=== PATIENT | female | born 1960 | race Caucasian/White ===

== ENCOUNTER 2016-05-08 18:15 | Emergency (ER) | payer OTHER ==
--- NOTE | 2016-05-08 19:21 | ED ORDER SUMMARY ---
..... Patient: LATISHA NORRIS OrderSheet [facility] VisitID: [id number] [address] [place] [address] 55y, F Registration Date/Time: 05/08/2016 ORDER SHEET Weight: 95.2 kg (stated) Allergies: Codeine GENERAL ORDERS: Cervical Spine 2 or 3V Urgent (18:50 05/08/2016 [facility]) (Ack 19:06 RKaruga) (19:21 MWinterer R.N.) Thoracic Spine 2V Urgent (18:50 05/08/2016 [facility]) (Ack 19:06 RKaruga) (19:21 MWinterer R.N.) Lumbar Spine 2 or 3V Urgent (18:50 05/08/2016 [facility]) (Ack 19:06 RKaruga) (19:21 MWinterer R.N.) MEDICATION ORDERS: Dilaudid IM 1 mg (HIGH ALERT MEDICATION, NOW) (18:52 05/08/2016 [facility]) (Ack 19:10 MWinterer R.N.) (19:32 MWinterer R.N.) Phenergan IM 25 mg (HIGH ALERT MEDICATION, NOW) (18:52 05/08/2016 [facility]) (Ack 19:10 MWinterer R.N.) (19:32 MWinterer R.N.) Zofran ODT PO 4 mg (NOW) (19:54 05/08/2016 [facility]) (Ack 19:55 MWinterer R.N.) (20:00 MWinterer R.N.) IV FLUIDS: ORDER SHEET NOTES: [Electronically signed by Patience Simmons R.N. (23:37 05/08/2016)] [Electronically signed by Luis Palma DO (13:19 05/09/2016)] [Electronically locked/signed by Patience Simmons R.N. (23:37 05/08/2016)]
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
--- NOTE | 2016-05-08 19:21 | ED ORDER SUMMARY ---
..... Patient: LATISHA NORRIS OrderSheet [facility] VisitID: [id number] [address] [place] [address] 55y, F Registration Date/Time: 05/08/2016 ORDER SHEET Weight: 95.2 kg (stated) Allergies: Codeine GENERAL ORDERS: Cervical Spine 2 or 3V Urgent (18:50 05/08/2016 [facility]) (Ack 19:06 RKaruga) (19:21 MWinterer R.N.) Thoracic Spine 2V Urgent (18:50 05/08/2016 [facility]) (Ack 19:06 RKaruga) (19:21 MWinterer R.N.) Lumbar Spine 2 or 3V Urgent (18:50 05/08/2016 [facility]) (Ack 19:06 RKaruga) (19:21 MWinterer R.N.) MEDICATION ORDERS: Dilaudid IM 1 mg (HIGH ALERT MEDICATION, NOW) (18:52 05/08/2016 [facility]) (Ack 19:10 MWinterer R.N.) (19:32 MWinterer R.N.) Phenergan IM 25 mg (HIGH ALERT MEDICATION, NOW) (18:52 05/08/2016 [facility]) (Ack 19:10 MWinterer R.N.) (19:32 MWinterer R.N.) Zofran ODT PO 4 mg (NOW) (19:54 05/08/2016 [facility]) (Ack 19:55 MWinterer R.N.) (20:00 MWinterer R.N.) IV FLUIDS: ORDER SHEET NOTES: [Electronically signed by Patience Simmons R.N. (23:37 05/08/2016)] [Electronically signed by Luis Palma DO (13:19 05/09/2016)] [Electronically locked/signed by Patience Simmons R.N. (23:37 05/08/2016)]
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
--- NOTE | 2016-05-08 19:44 | DIAGNOSTIC IMAGING REPORT ---
PROCEDURE: XR CERVICAL SPINE 2 OR 3 VIEW INDICATION: NECK TRAUMA/INJURY TECHNIQUE: Four views of the cervical spine were obtained. COMPARISON: None. FINDINGS: The cervical vertebral bodies are normal in height and alignment. Mild anterior and posterior degenerative endplate spurring at C5-6 and C6-7. Mild facet hypertrophy in the upper cervical spine. The disk spaces are minimally decreased at C6-7 but otherwise normally maintained. There is no prevertebral soft-tissue swelling or suspicious calcification. The airway is patent. The soft tissues of the neck appear normal. IMPRESSION: 1. Intact cervical spine. 2. Mild disc, facet, and endplate degeneration
--- NOTE | 2016-05-08 19:46 | DIAGNOSTIC IMAGING REPORT ---
PROCEDURE: XR THORACIC SPINE 2 VIEWS INDICATION: TRAUMA/INJURY TECHNIQUE: Three views of the thoracic spine COMPARISON: 11/20/2015 FINDINGS: 12 thoracic vertebral bodies are normal in height without fracture. Mild degenerative endplate spurring mid and lower thoracic spine. The disc spaces are normally maintained. No significant scoliosis. No AP subluxation. Paraspinal soft tissue stripe is normal. The visible soft tissues and ribs are normal. IMPRESSION: 1. Intact thoracic spine. 2. Minimal degenerative changes, stable.
--- NOTE | 2016-05-08 19:49 | DIAGNOSTIC IMAGING REPORT ---
PROCEDURE: XR LUMBAR SPINE 2 OR 3 VIEWS INDICATION: TRAUMA/INJURY TECHNIQUE: Three views of the lumbar spine COMPARISON: 11/20/2015 FINDINGS: Five lumbar-type vertebral bodies are present. Normal vertebral body height without fracture. Slight left lateral subluxation of L4-5, chronic. Moderately severe L5-S1 disc height loss, chronic. Mild disc height loss L4-5. Right-sided facet hypertrophy L4-S1. The visible osseous pelvis and bowel gas pattern are normal. Spurring of the left sacroiliac joint, chronic. IMPRESSION: 1. Degenerative changes in the lower lumbar spine are chronic. 2. No acute fractures.
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
--- NOTE | 2016-05-09 13:19 | ED MAR SUMMARY ---
..... Medication Administration Record [facility] [address] [place] [address] Patient: LATISHA NORRIS Visit ID: [id number] 55y, F Weight: 95.2 kg Height/Length: 67 in BMI: 32.9 ALLERGIES: Codeine Given 19:32 05/08/2016 Patience Simmons, R.N. Medication Administered: DILAUDID [IM] (HYDROMORPHONE HCL PF), Dose: 1 mg IM. Medication Ordered: Dilaudid IM 1 mg (HIGH ALERT MEDICATION, NOW). Given 19:32 05/08/2016 Patience Simmons RVinhN. Medication Administered: PHENERGAN [IM] (PROMETHAZINE HCL), Dose: 25 mg IM. Medication Ordered: Phenergan IM 25 mg (HIGH ALERT MEDICATION, NOW). Given 20:00 05/08/2016 Patience Simmons, R.N. Medication Administered: ZOFRAN ODT [PO] (ONDANSETRON), Dose: 4 mg PO. Medication Ordered: Zofran ODT PO 4 mg (NOW).
--- NOTE | 2016-05-09 13:19 | ED MED RECONCILIATION SUMMARY ---
Patient: LATISHA NORRIS Medication Reconciliation Report [facility] VisitID: [id number] [address] [place] [address] 55y, F Registration Date/Time: 05/08/2016 Weight: 95.2 kg Height/Length: 67 in. BMI: 32.9 ALLERGIES: Codeine The patient's Home Medications are listed below: CONTINUE TAKING THE FOLLOWING MEDICATIONS: Ibuprofen Oral Muscle Relaxant The source(s) of the original Home Medication information: patient The following Medications were given to the patient in the Emergency Department: Dilaudid [IM] IM 1 mg, administered: 05/08/2016 7:32:00 PM Phenergan [IM] IM 25 mg, administered: 05/08/2016 7:32:00 PM Zofran ODT [PO] PO 4 mg, administered: 05/08/2016 8:00:00 PM The following Medications were prescribed to the patient: Acetaminophen (available over the counter): take according to label instructions. -- Luis Palma DO Hydrocodone/APAP 5mg / 325mg: take 1-2 orally every 8 hours as needed for pain. Dispense ten (10). No refill. -- Luis Palma DO Zofran (orally disintegrating tablets) 4 mg: take 1 orally every 8 hours as needed for nausea and vomiting -- Luis Palma DO Ibuprofen 600mg tablets: take 1 tablet orally every 8 hours as needed for pain. Dispense thirty (30). No refills. -- Luis Palma DO Flexeril 10 mg: Take 1 orally every 8 hours as needed for muscle spasm. Dispense twenty (20). No refills. Substitution is permissible. -- Luis Palma DO
--- NOTE | 2016-05-09 13:19 | ED MAR SUMMARY ---
..... Medication Administration Record Located Within [facility] [address] [place] [address] Patient: LATISHA NORRIS Visit ID: [id number] 55y, F Weight: 95.2 kg Height/Length: 67 in BMI: 32.9 ALLERGIES: Codeine Given 19:32 05/08/2016 Patience Simmons, R.N. Medication Administered: DILAUDID [IM] (HYDROMORPHONE HCL PF), Dose: 1 mg IM. Medication Ordered: Dilaudid IM 1 mg (HIGH ALERT MEDICATION, NOW). Given 19:32 05/08/2016 Patience Simmons RVinhN. Medication Administered: PHENERGAN [IM] (PROMETHAZINE HCL), Dose: 25 mg IM. Medication Ordered: Phenergan IM 25 mg (HIGH ALERT MEDICATION, NOW). Given 20:00 05/08/2016 Patience Simmons, R.N. Medication Administered: ZOFRAN ODT [PO] (ONDANSETRON), Dose: 4 mg PO. Medication Ordered: Zofran ODT PO 4 mg (NOW).
--- NOTE | 2016-05-09 13:19 | ED MED RECONCILIATION SUMMARY ---
Patient: LATISHA NORRIS Medication Reconciliation Report [facility] VisitID: [id number] [address] [place] [address] 55y, F Registration Date/Time: 05/08/2016 Weight: 95.2 kg Height/Length: 67 in. BMI: 32.9 ALLERGIES: Codeine The patient's Home Medications are listed below: CONTINUE TAKING THE FOLLOWING MEDICATIONS: Ibuprofen Oral Muscle Relaxant The source(s) of the original Home Medication information: patient The following Medications were given to the patient in the Emergency Department: Dilaudid [IM] IM 1 mg, administered: 05/08/2016 7:32:00 PM Phenergan [IM] IM 25 mg, administered: 05/08/2016 7:32:00 PM Zofran ODT [PO] PO 4 mg, administered: 05/08/2016 8:00:00 PM The following Medications were prescribed to the patient: Acetaminophen (available over the counter): take according to label instructions. -- Luis Palma DO Hydrocodone/APAP 5mg / 325mg: take 1-2 orally every 8 hours as needed for pain. Dispense ten (10). No refill. -- Luis Palma DO Zofran (orally disintegrating tablets) 4 mg: take 1 orally every 8 hours as needed for nausea and vomiting -- Luis Palma DO Ibuprofen 600mg tablets: take 1 tablet orally every 8 hours as needed for pain. Dispense thirty (30). No refills. -- Lusi Palma DO Flexeril 10 mg: Take 1 orally every 8 hours as needed for muscle spasm. Dispense twenty (20). No refills. Substitution is permissible. -- Luis Palma DO
== END 2016-05-08 20:25 | disposition home or self-care (01) ==
LOC: ED SRH 18:15
DX: S16.1XXA Strain of muscle, fascia and tendon at neck level, initial encounter (principal); I10 Essential (primary) hypertension; S39.012A Strain of muscle, fascia and tendon of lower back, initial encounter; S23.3XXA Sprain of ligaments of thoracic spine, initial encounter; M51.36 Other intervertebral disc degeneration, lumbar region; M51.34 Other intervertebral disc degeneration, thoracic region; V43.52XA Car driver injured in collision with other type car in traffic accident, initial encounter; Y93.89 Activity, other specified; Y92.410 Unspecified street and highway as the place of occurrence of the external cause; Y99.9 Unspecified external cause status